=== PATIENT | male | born 1950 | race Caucasian/White ===

== ENCOUNTER 2023-11-05 11:07 | Emergency (ER) | payer MEDICARE ==
[~2023-11-05] VITALS: Ht 182.8 cm; Wt 90.3 kg
[2023-11-05] MEDS ORDERED: CEPHALEXIN500 M1 PO (12:34)
[2023-11-05] MEDS ORDERED: Tdap Vaccine 0.5 ML SYR (Adult Vaccine) IM ONE (12:35)
== END 2023-11-05 12:39 | disposition home or self-care (01) ==
LOC: ED 11:07 → EDSEX 11:09 → ED 12:39
DX: S61.412A Laceration without foreign body of left hand, initial encounter (principal); W26.8XXA Contact with other sharp object(s), not elsewhere classified, initial encounter; Y93.89 Activity, other specified; Y92.89 Other specified places as the place of occurrence of the external cause; Y99.8 Other external cause status